=== PATIENT | male | born 1965 | race Hispanic/Latino ===

== ENCOUNTER 2016-12-08 21:00 | Emergency (ER) | payer SELFPAY ==
[2016-12-08 22:04] VITALS: BP 187/116
--- NOTE | 2016-12-11 21:57 | ED Elopement Review ---
ED Pt Elopement review - Call Back decision Pt Call Back Decision: Pt to F/U with PMD
== END 2016-12-08 23:46 | disposition left against medical advice (07) ==
LOC: ED 21:00
DX: R03.0 Elevated blood-pressure reading, without diagnosis of hypertension (principal); Z53.21 Procedure and treatment not carried out due to patient leaving prior to being seen by health care provider
CPT/HCPCS: 93005; 93010

== ENCOUNTER 2017-12-05 23:04 | Inpatient (IN) | payer OTHER ==
[2017-12-05] MEDS ORDERED: NACL 0.9% 1000 ML 1,000 ML ONE (23:05)
--- NOTE | 2017-12-05 23:15 | Emergency Department Report ---
HPI - General Time Seen by Provider: 12/05/17 23:11 - HPI HPI: Room 1 The patient is a 51-year-old male presenting with a chief complaint of chest pain and palpitations. The patient states this evening he was lying down at rest when at approximately 18:30 he notes an elevated heart rate. Patient states his heart start pounding and developed substernal chest pressure associated with shortness of breath and diaphoresis. Patient denies nausea and vomiting. The patient states she's had similar episodes in the past which she is attributed to panic attack although he's never been diagnosed with anxiety. Patient states she's never been evaluated for the elevations in the past. The patient states in the past as palpitations usually resolve but this time it did not prompting him to call EMS. Patient currently gets his chest soreness or score of 3-4/10. EMS was unable to establish IV access so no medication was given prior to arrival. Location: Chest Duration: Constant since 18:30 Quality: Pressure, palpitations Severity:3-4/10 Modifying factors: [see above] Context: [see above] Mode of transportation: [not driving] ED Past Medical Hx - Past Medical History Hx Hypertension: Yes Hx Diabetes: Yes Additional medical history: Hepatitis C - Surgical History Hx Appendectomy: Yes - Family History Family history: no significant - Social History Smoking Status: Never Smoker Substance Use Type: None (denies illicit drug use) - Medications Home Medications: Home Medications Medication Instructions Recorded Confirmed Last Taken Type Hydrochlorothiazide [HCTZ] 12.5 mg PO QDAY #30 tablet 01/09/15 Unknown Rx Lisinopril [Zestril TAB] 40 mg PO QDAY #30 tablet 01/09/15 Unknown Rx amLODIPine [Norvasc] 10 mg PO DAILY #30 tablet 01/09/15 Unknown Rx cloNIDine [Catapres] 0.1 mg PO BID #60 tablet 01/09/15 Unknown Rx metFORMIN [Glucophage] 500 mg PO QDAY #30 tablet 01/09/15 Unknown Rx Lisinopril/Hydrochlorothiazide 1 each PO QDAY #30 tablet 07/01/15 Unknown Rx [Zestoretic 20-12.5 mg] amLODIPine [Norvasc] 5 mg PO DAILY #30 tab 07/01/15 Unknown Rx cloNIDine [Catapres] 0.1 mg PO BID #60 tablet 07/01/15 Unknown Rx metFORMIN [Glucophage] 500 mg PO QDAY #30 tab 07/01/15 Unknown Rx ED Review of Systems ROS: Stated complaint: SVT Other details as noted in HPI Constitutional: diaphoresis Eyes: denies: eye pain ENT: denies: throat pain Respiratory: shortness of breath Cardiovascular: chest pain, palpitations Gastrointestinal: denies: abdominal pain, nausea, vomiting Genitourinary: denies: dysuria Musculoskeletal: denies: back pain Neurological: denies: headache Physical Exam - Physical Exam Physical Exam: GENERAL: The patient is well-developed well-nourished male lying on stretcher appearing to be in mild discomfort HEENT: Normocephalic. Atraumatic. Extraocular motions are intact. Patient has moist mucous membranes. NECK: Supple. Trachea midline CHEST/LUNGS: Clear to auscultation. There is no respiratory distress noted. HEART/CARDIOVASCULAR: Regular. There is tachycardia. There is no gallop rub or murmur. ABDOMEN: Abdomen is soft, nontender. Patient has normal bowel sounds. There is no abdominal distention. SKIN: There is no rash. There is no diaphoresis. NEURO: The patient is awake, alert, and oriented. The patient is cooperative. The patient has normal speech MUSCULOSKELETAL: There is no evidence of acute injury. ED Course - Reevaluation(s) Reevaluation #1: 12/05/17 23:28 Patient improved after adenosine. Heart rate 130s ED Medical Decision Making - Lab Data Result diagrams: 12/05/17 23:22 12/05/17 23:22 Laboratory Tests 12/05/17 12/05/17 12/05/17 23:22 23:22 23:22 WBC 18.5 H RBC 5.61 H Hgb 14.9 Hct 45.7 H MCV 82 L MCH 27 L MCHC 33 RDW 14.5 Plt Count 324 Lymph % (Auto) 24.1 [place] % (Auto) 10.0 H Eos % (Auto) 0.2 Baso % (Auto) 1.2 Lymph # 4.5 [place] # 1.9 H Eos # 0.0 Baso # 0.2 H Seg Neutrophils % 64.5 Seg Neutrophils # 11.9 H PT 12.2 INR 0.87 APTT 27.0 Sodium 125 L Potassium 3.3 L Chloride 87.5 L Carbon Dioxide 23 Anion Gap 18 BUN 23 H Creatinine 0.9 Estimated GFR > 60 BUN/Creatinine Ratio 26 Glucose 442 H Calcium 9.4 Total Creatine Kinase 111 CK-MB (CK-2) 2.1 CK-MB (CK-2) Rel Index 1.8 Troponin T 0.011 TSH Free T4 12/05/17 23:22 WBC RBC Hgb Hct MCV MCH MCHC RDW Plt Count Lymph % (Auto) [place] % (Auto) Eos % (Auto) Baso % (Auto) Lymph # [place] # Eos # Baso # Seg Neutrophils % Seg Neutrophils # PT INR APTT Sodium Potassium Chloride Carbon Dioxide Anion Gap BUN Creatinine Estimated GFR BUN/Creatinine Ratio Glucose Calcium Total Creatine Kinase CK-MB (CK-2) CK-MB (CK-2) Rel Index Troponin T TSH 5.110 H Free T4 1.48 H - EKG Data -: EKG Interpreted by Me Rate: tachycardia - EKG Data Interpretation: other (EKG #2 (status post adenosine) sinus tachycardia at 126 bpm. No significant change when compared to previous EKG dated 12/08/2016) - Radiology Data Radiology results: image reviewed (chest x-ray) interpreted by me: Chest x-ray-no focal infiltrate, no pneumothorax - Differential Diagnosis PSVT, a flutter, A. fib with RVR Critical care attestation.: If time is entered above; I have spent that time in minutes in the direct care of this critically ill patient, excluding procedure time. ED Disposition Clinical Impression: Chest pain, PSVT (paroxysmal supraventricular tachycardia), Hypokalemia, Hyponatremia, Hypothyroidism Disposition: OP ADMIT IP TO THIS HOSP Is pt being admited?: Yes Does the pt Need Aspirin: Yes Condition: Fair Instructions: Chest Pain (ED) Time of Disposition: 00:25 (hospitalist paged (Dr. Debbie Aiken))
[2017-12-05] MEDS ORDERED: NACL 0.9% 1000 ML 1,000 ML IV ONE (23:31)
[2017-12-05] MEDS ORDERED: ASPIRIN PO ONE (23:33)
[2017-12-05 23:54] LABS: Basophils # (Auto) 0.2 K/mm3 (0.0-0.1); Basophils % (Auto) 1.2 % (0.0-1.8); Eosinophils % (Auto) 0.2 % (0.0-4.3); Hematocrit 45.7 % (35.5-45.6); Hemoglobin 14.9 gm/dl (11.8-15.2); Lymphocytes # (Auto) 4.5 K/mm3 (1.2-5.4); Lymphocytes % (Auto) 24.1 % (13.4-35.0); Mean Corpuscular HGB Conc 33 % (32-34); Mean Corpuscular Hemoglobin 27 pg (28-32); Mean Corpuscular Volume 82 fl (84-94); Monocytes # (Auto) 1.9 K/mm3 (0.0-0.8); Platelet Count 324 K/mm3 (140-440); Red Blood Count 5.61 M/mm3 (3.65-5.03); Red Cell Distribution Width 14.5 % (13.2-15.2)
[2017-12-06 00:16] LABS: Creatine Kinase MB 2.1 ng/mL (0.0-4.0)
[2017-12-06 00:19] LABS: BUN/Creatinine Ratio 26; Blood Urea Nitrogen 23 mg/dL (9-20); Calcium 9.4 mg/dL (8.4-10.2); Hemolysis Index 18
[2017-12-06 00:22] LABS: INR 0.87 (0.87-1.13)
[2017-12-06] MEDS ORDERED: NACL 0.9% 1000 ML 1,000 ML IV ONE (00:24)
[2017-12-06] MEDS ORDERED: K-DUR PO ONE (00:25)
--- NOTE | 2017-12-06 00:26 | XRay Report ---
FINAL REPORT EXAM: XR CHEST 1V AP HISTORY: chest pain COMPARISON: None available. FINDINGS: Frontal view(s) of the chest obtained. Heart upper limits normal in size.. Shallow inspiration with crowding of bronchovascular markings. No gross consolidation or effusion. No pneumothorax. IMPRESSION: No grossly acute findings.
[2017-12-06 00:28] LABS: Free T4 (Free Thyroxine) 1.48 ng/dL (0.76-1.46)
[2017-12-06] MEDS ORDERED: SODIUM CHLORIDE FLUSH SYRINGE 10 ML IV PRN (01:16)
[2017-12-06] MEDS ORDERED: ZOFRAN IV PRN (01:16)
[2017-12-06] MEDS ORDERED: TYLENOL PO PRN (01:16)
--- NOTE | 2017-12-06 01:20 | History and Physical Report ---
History of Present Illness Date of examination: 12/06/17 History of present illness: 51 year old man with history of hypetension, diabetes, comes to the ER for evaluation of palpitation. He states the cough is productive of yellow phlegm that started 3 days ago. He felt fatigued. He took 2 [place] cold tablets and 1 sinus pill. Shortly afterwards he did not fill well, his heart started racing, he felt as if he was having a panic attack. EMS was called and his heart rate was over 200, he was brought to the emergency room and was given IV adenosine with good results Review of systems Constitutional: no weight loss, chills, fever Ears, eyes, nose, mouth and throat: no nasal congestion, no nasal discharge, no sinus pressure, no vision change, no red eye. Neck: No neck pain or rigidity. Cardiovascular: no chest pain Respiratory: no cough, shortness of breath Gastrointestinal: no abdominal pain hematochezia Genitourinary : no frequency , no hematuria Musculoskeletal: no joint swelling or muscle ache Integumentary: no rash, no pruritis Neurological: no parathesias, no numbness, no focal weakness Endocrine: no cold or heat intolerance, no polyuria or polydipsia Hematologic/Lymphatic: no easy bruising, no easy bleeding, no gland swelling Allergic/Immunologic: no urticaria, no angioedema. PAST MEDICAL HISTORY: Attention, diabetes PAST SURGICAL HISTORY: Tonsillectomy, appendectomy SOCIAL HISTORY: No alcohol, no drugs, tobacco FAMILY HISTORY: Hypertension Medications and Allergies Allergies Allergy/AdvReac Type Severity Reaction Status Date / Time codeine AdvReac Itching Verified 12/13/13 17:22 Home Medications Medication Instructions Recorded Confirmed Last Taken Type Metoprolol [Lopressor TAB] 50 mg PO BID #60 tablet 12/06/17 Unknown Rx Hydrochlorothiazide [Hctz] 12.5 mg PO QDAY #90 capsule 12/07/17 Unknown Rx Insulin NPH/Regular [NovoLIN 70/30] 10 unit SQ BIDDIAB #1 vial 12/07/17 Unknown Rx Lisinopril [Zestril] 20 mg PO DAILY #90 tablet 12/07/17 Unknown Rx Magnesium Chloride [Slow-Mag] 64 mg PO DAILY #7 tablet.er 12/07/17 Unknown Rx Pseudoephedrine ER [Sudafed 12 Hr] 120 mg PO Q12HR PRN #14 tablet 12/07/17 Unknown Rx Syrge-Ndl,Ins 0.3 ml Half Nixon 1 each MC BID #180 disp.syrin 12/07/17 Unknown Rx [Insulin Syringe] amLODIPine [Norvasc] 10 mg PO DAILY #90 tablet 12/07/17 Unknown Rx cloNIDine [Catapres] 0.1 mg PO BID #180 tablet 12/07/17 Unknown Rx glyBURIDE [Glyburide] 5 mg PO BIDAC #180 tablet 12/07/17 Unknown Rx guaiFENesin DM [Guaifenesin Dm 20 ml PO Q4H PRN #120 ml 12/07/17 Unknown Rx Syrup] metFORMIN [Glucophage] 1,000 mg PO BID #360 tablet 12/07/17 Unknown Rx Active Meds: Active Medications Sodium Chloride (Nacl 0.9% 1000 Ml) 1,000 mls @ 250 mls/hr IV ONCE ONE Stop: 12/06/17 04:23 Exam - Physical Exam Narrative exam: Gen. appearance: Patient lying in bed, no apparent distress HEENT: Normocephalic, atraumatic, pupils equally round and reactive to light, eyes are , extraocular movement intact, and no sclericterus,. No JVD or thyromegaly or nodule,neck supple, no carotid bruit ,mucous membranes moist, no exudate or erythema Heart: S1, S2, regular rate and rhythm Lungs: Clear bilaterally, breathing comfortable Abdomen: Positive bowel sounds, tender in mid abdomen, nondistended, no organomegaly Extremity:no edema cyanosis, clubbing Skin: no rash, dry, warm Neuro: Oriented 3, cranial nerves II-12 intact, speech is fluent, motor and sensory intact - Constitutional Vitals: Temp Pulse Resp BP Pulse Ox 110 H 14 126/88 96 12/06/17 00:38 12/06/17 00:30 12/06/17 00:30 12/06/17 00:30 Results - Labs CBC & Chem 7: 12/07/17 05:44 12/07/17 05:44 Labs: Abnormal lab results 12/05/17 12/05/17 12/05/17 Range/Units 23:22 23:22 23:22 WBC 18.5 H (4.5-11.0) K/mm3 RBC 5.61 H (3.65-5.03) M/mm3 Hct 45.7 H (35.5-45.6) % MCV 82 L (84-94) fl MCH 27 L (28-32) pg [place] % (Auto) 10.0 H (0.0-7.3) % [place] # 1.9 H (0.0-0.8) K/mm3 Baso # 0.2 H (0.0-0.1) K/mm3 Seg Neutrophils # 11.9 H (1.8-7.7) K/mm3 Sodium 125 L (137-145) mmol/L Potassium 3.3 L (3.6-5.0) mmol/L Chloride 87.5 L (98-107) mmol/L BUN 23 H (9-20) mg/dL Glucose 442 H (75-100) mg/dL TSH 5.110 H (0.270-4.200) mlU/mL Free T4 1.48 H (0.76-1.46) ng/dL - Imaging and Cardiology EKG: image reviewed Chest x-ray: image reviewed Assessment and Plan Assessment Palpitation most likely medication induced Hypertension Diabetes Plan Admit to medicine Start IV fluids, check 6 initiate insulin sliding [facility] [place], cardiology DVT prophylaxis echo
[2017-12-06] MEDS ORDERED: NACL 0.45% 1000 ML 1,000 ML IV SCH (02:00)
[2017-12-06 02:34] LABS: Creatine Kinase MB 2.9 ng/mL (0.0-4.0)
[2017-12-06 02:49] LABS: Chol/HDL Ratio 4.37 %
[2017-12-06] MEDS ORDERED: LEVAQUIN 500MG/100ML 500 MG/100 ML BAG IV ONE (04:15)
[2017-12-06] MEDS: LEVAQUIN 500MG/100ML 500 MG/100 ML BAG IV SCH ×2 (04:27→10:25)
[2017-12-06] MEDS ORDERED: LOVENOX SUB-Q ONE (10:35)
[2017-12-06] MEDS: LOVENOX SUB-Q SCH (11:06)
[2017-12-06] MEDS: SODIUM CHLORIDE FLUSH SYRINGE 10 ML IV SCH ×2 (11:07→21:54)
[2017-12-06 11:26] LABS: Creatine Kinase MB 3.9 ng/mL (0.0-4.0)
--- NOTE | 2017-12-06 14:06 | Consultation ---
History of Present Illness Consult date: 12/06/17 Consult reason: arrhythmia History of present illness: This is a 51yr old male who presents with palpitations, found to be in SVT which was treated with adenosine. He has since reverted to a sinus rhythm. Laboratory studies shows a WBC of 18.5, a sodium of 125 and TSH of 5.10. A repeat ECG shows a sinus tachycardia, no acute ST changes. A cardiac consultation was requested for further management. Past History Past Medical History: diabetes, hypertension Medications and Allergies Allergies Allergy/AdvReac Type Severity Reaction Status Date / Time codeine AdvReac Itching Verified 12/13/13 17:22 Home Medications Medication Instructions Recorded Confirmed Last Taken Type amLODIPine [Norvasc] 10 mg PO DAILY #30 tablet 01/09/15 12/06/17 Unknown Rx Lisinopril/Hydrochlorothiazide 1 each PO QDAY #30 tablet 07/01/15 12/06/17 Unknown Rx [Zestoretic 20-12.5 mg] cloNIDine [Catapres] 0.1 mg PO BID #60 tablet 07/01/15 12/06/17 Unknown Rx glyBURIDE [Glyburide] 1 tab PO DAILY 12/06/17 12/06/17 Unknown History metFORMIN [Glucophage] 1,000 mg PO QDAY 12/06/17 12/06/17 Unknown History Active Meds: Active Medications Acetaminophen (Tylenol) 650 mg PO Q4H PRN PRN Reason: Pain MILD(1-3)/Fever >100.5/ARGUETA Enoxaparin Sodium (Lovenox) 40 mg SUB-Q QDAY [facility] Last Admin: 12/06/17 11:06 Dose: 40 mg Sodium Chloride (Nacl 0.45% 1000 Ml) 1,000 mls @ 75 mls/hr IV DIRECT [facility] Last Admin: 12/06/17 12:11 Dose: 75 mls/hr Levofloxacin/Dextrose (Levaquin 500mg/100ml) 500 mg in 100 mls @ 100 mls/hr IV Q24HR [facility]; Protocol Last Admin: 12/06/17 10:25 Dose: Not Given Ondansetron HCl (Zofran) 4 mg IV Q8H PRN PRN Reason: Nausea And Vomiting Sodium Chloride (Sodium Chloride Flush Syringe 10 Ml) 10 ml IV BID [facility] Last Admin: 12/06/17 11:07 Dose: 10 ml Sodium Chloride (Sodium Chloride Flush Syringe 10 Ml) 10 ml IV PRN PRN PRN Reason: LINE FLUSH Physical Examination Vital Signs Pulse Resp 207 H 16 12/05/17 23:02 12/05/17 23:02 General appearance: no acute distress HEENT: Positive: PERRL Cardiac: Positive: Reg Rate and Rhythm Results 12/05/17 23:22 12/05/17 23:22 Cardiac Enzymes 12/05/17 12/06/17 12/06/17 Range/Units 23:22 01:37 10:08 CK-MB (CK-2) 2.1 2.9 3.9 (0.0-4.0) ng/mL Coagulation 12/05/17 Range/Units 23:22 PT 12.2 (12.2-14.9) Sec. INR 0.87 (0.87-1.13) APTT 27.0 (24.2-36.6) Sec. Lipids 12/06/17 Range/Units 01:37 Triglycerides 84 (2-149) mg/dL Cholesterol 162 (50-199) mg/dL HDL Cholesterol 37 L (40-59) mg/dL Cholesterol/HDL Ratio 4.37 % CBC 12/05/17 Range/Units 23:22 WBC 18.5 H (4.5-11.0) K/mm3 RBC 5.61 H (3.65-5.03) M/mm3 Hgb 14.9 (11.8-15.2) gm/dl Hct 45.7 H (35.5-45.6) % Plt Count 324 (140-440) K/mm3 Lymph # 4.5 (1.2-5.4) K/mm3 [place] # 1.9 H (0.0-0.8) K/mm3 Eos # 0.0 (0.0-0.4) K/mm3 Baso # 0.2 H (0.0-0.1) K/mm3 Comprehensive Metabolic Panel 12/05/17 Range/Units 23:22 Sodium 125 L (137-145) mmol/L Potassium 3.3 L (3.6-5.0) mmol/L Chloride 87.5 L (98-107) mmol/L Carbon Dioxide 23 (22-30) mmol/L BUN 23 H (9-20) mg/dL Creatinine 0.9 (0.8-1.5) mg/dL Glucose 442 H (75-100) mg/dL Calcium 9.4 (8.4-10.2) mg/dL Assessment and Plan AVRNT s/p adenosine x 1 reverted to sinus rhythm Hypertension Diabetes
--- NOTE | 2017-12-06 15:31 | Discharge Summary ---
Providers - Providers Date of Admission: 12/06/17 01:16 Attending physician: JENNIFER AMAYA MD 12/06/17 01:16 Consult to Physician [CONS] Routine Comment: Consulting Provider: FRANDY BAUTISTA Physician Instructions: Reason For Exam: svt Primary care physician: [employer] Hospitalization Condition: Fair Hospital course: 51 year old man with history of hypetension, diabetes, comes to the ER for evaluation of palpitation. He states the cough is productive of yellow phlegm. He felt fatigued. He took 2 [place] cold tablets and 1 sinus pill. Shortly afterwards he did not feel well, his heart started racing, he felt as if he was having a panic attack. EMS was called and his heart rate was over 200 , he was brought to the emergency room and was given IV adenosine with good results. He was admitted to the hospital, he was seen by cardiology who recommended metoprolol for rate control. He was advised to be careful with cold medications and not take half the recommended dose. His sugars were elevated, his A1c was 10. He was started on insulins. He was also found to be hyponatremic. He was received IV fluid and electrolytes were repleted Diagnoses SVT Hypertension Uncontrolled diabetes Hyponatremia Dehydration Hypokalemia Hypomagnesemia Disposition: DC-01 TO HOME OR SELFCARE Time spent for discharge: 33 minutes Core Measure Documentation - Palliative Care Palliative Care/ Comfort Measures: Not Applicable - Core Measures Any of the following diagnoses?: none Exam - Constitutional Vitals: Temp Pulse Resp BP Pulse Ox 98.4 F 93 H 20 138/101 93 12/06/17 11:50 12/06/17 11:50 12/06/17 11:50 12/06/17 11:50 12/06/17 11:50 General appearance: Present: no acute distress, well-nourished - EENT Eyes: Present: PERRL ENT: hearing intact, clear oral mucosa - Neck Neck: Present: supple, normal ROM - Respiratory Respiratory effort: normal Respiratory: bilateral: CTA - Cardiovascular Heart Sounds: Present: S1 & S2. Absent: rub, click - Extremities Extremities: pulses symmetrical, No edema Peripheral Pulses: within normal limits - Abdominal General gastrointestinal: Present: soft, non-tender, non-distended, normal bowel sounds Male genitourinary: Present: normal - Integumentary Integumentary: Present: clear, warm, dry - Musculoskeletal Musculoskeletal: gait normal, strength equal bilaterally - Psychiatric Psychiatric: appropriate mood/affect, intact judgment & insight - Neurologic Neurologic: CNII-XII intact, moves all extremities Plan Follow up with: PRIMARY CARE,MD [Primary Care Provider] - 3-5 Days Prescriptions: amLODIPine [Norvasc] 10 mg PO DAILY #90 tablet cloNIDine [Catapres] 0.1 mg PO BID #180 tablet glyBURIDE [Glyburide] 5 mg PO BIDAC #180 tablet guaiFENesin DM [Guaifenesin Dm Syrup] 20 ml PO Q4H PRN #120 ml PRN Reason: Cough Hydrochlorothiazide [Hctz] 12.5 mg PO QDAY #90 capsule Insulin NPH/Regular [NovoLIN 70/30] 10 unit SQ BIDDIAB #1 vial Lisinopril [Zestril] 20 mg PO DAILY #90 tablet Magnesium Chloride [Slow-Mag] 64 mg PO DAILY #7 tablet.er metFORMIN [Glucophage] 1,000 mg PO BID #360 tablet Metoprolol [Lopressor TAB] 50 mg PO BID #60 tablet Pseudoephedrine ER [Sudafed 12 Hr] 120 mg PO Q12HR PRN #14 tablet PRN Reason: Allergy Symptoms Syrge-Ndl,Ins 0.3 ml Half [place] [Insulin Syringe] 1 each MC BID #180 disp.syrin Other Discharge Orders: Glucometer supplies[Amb] Location: None Selected Glucometer (Amb) Location: None Selected
[2017-12-06] MEDS: LOPRESSOR PO SCH ×2 (15:34→21:52)
[2017-12-06] MEDS: HumaLOG SUB-Q SCH ×2 (15:38→22:55)
[2017-12-06] MEDS ORDERED: APRESOLINE IV PRN (15:44)
[2017-12-06] MEDS ORDERED: NS/KCL 20MEQ 20 MEQ/1,000 ML BAG IV SCH (16:00)
--- NOTE | 2017-12-06 20:05 | Progress Note ---
Assessment and Plan Assessment and plan: 51 year old man with history of hypetension, diabetes, comes to the ER c/o cough, cold stuffy nose. He took 2 [place] cold tablets and 1 sinus pill. Shortly afterwards he did not feel well, his heart started racing, he felt as if he was having a panic attack. EMS was called and his heart rate was over 200 , he was brought to the emergency room and was given IV adenosine with good results SVT; Palpitation most likely medication induced from taking anticongestants, per cardiology, "The patient should be administered with beta paul therapy, metoprolol 50 mg BID., Further cardiac workup as outpatient with electrophysiologic follow-up" Hyponatremia; NS Hypokalemia; replete Hypertension- optimize meds Diabetes, very hyperglycemic- check a1c, ssi History Interval history: Review of systems Constitutional: No fevers, no malaise, no joint pains CVS: No chest pain, no orthopnea, no dyspnea on exertion, no pedal edema GI: No abdominal pain, no diarrhea, no vomiting, no constipation Respiratory: No shortness of breath, no wheezing, no coughing Hospitalist Physical - Physical exam Narrative exam: General.: Appears well, no distress, nontoxic HEENT: Moist mucous membranes, extraocular muscles intact, no lymphadenopathy Neck: supple Cardiac: S1-S2 heard Lungs: clear to auscultation bilaterally Abdomen: soft , nontender, nondistended, bowel sounds positive Extremities: no edema clubbing or cyanosis Skin: no rash or lesions Neurologic: no gross focal deficits Psych: appropriate behavior, appropriate mood, corporative, judgment intact - Constitutional Vitals: Temp Pulse Resp BP Pulse Ox 98.4 F 83 20 137/90 93 12/06/17 16:48 12/06/17 16:48 12/06/17 16:48 12/06/17 16:48 12/06/17 16:48 General appearance: Present: no acute distress, well-nourished Results - Labs CBC & Chem 7: 12/07/17 05:44 12/07/17 05:44 Labs: Laboratory Last Values WBC 18.5 K/mm3 (4.5-11.0) H 12/05/17 23:22 RBC 5.61 M/mm3 (3.65-5.03) H 12/05/17 23:22 Hgb 14.9 gm/dl (11.8-15.2) 12/05/17 23:22 Hct 45.7 % (35.5-45.6) H 12/05/17 23:22 MCV 82 fl (84-94) L 12/05/17 23:22 MCH 27 pg (28-32) L 12/05/17 23:22 MCHC 33 % (32-34) 12/05/17 23:22 RDW 14.5 % (13.2-15.2) 12/05/17 23:22 Plt Count 324 K/mm3 (140-440) 12/05/17 23:22 Lymph % (Auto) 24.1 % (13.4-35.0) 12/05/17 23:22 [place] % (Auto) 10.0 % (0.0-7.3) H 12/05/17 23:22 Eos % (Auto) 0.2 % (0.0-4.3) 12/05/17 23:22 Baso % (Auto) 1.2 % (0.0-1.8) 12/05/17 23:22 Lymph # 4.5 K/mm3 (1.2-5.4) 12/05/17 23:22 [place] # 1.9 K/mm3 (0.0-0.8) H 12/05/17 23:22 Eos # 0.0 K/mm3 (0.0-0.4) 12/05/17 23:22 Baso # 0.2 K/mm3 (0.0-0.1) H 12/05/17 23:22 Seg Neutrophils % 64.5 % (40.0-70.0) 12/05/17 23:22 Seg Neutrophils # 11.9 K/mm3 (1.8-7.7) H 12/05/17 23:22 PT 12.2 Sec. (12.2-14.9) 12/05/17 23:22 INR 0.87 (0.87-1.13) 12/05/17 23:22 APTT 27.0 Sec. (24.2-36.6) 12/05/17 23:22 Sodium 125 mmol/L (137-145) L 12/05/17 23:22 Potassium 3.3 mmol/L (3.6-5.0) L 12/05/17 23:22 Chloride 87.5 mmol/L (98-107) L 12/05/17 23:22 Carbon Dioxide 23 mmol/L (22-30) 12/05/17 23:22 Anion Gap 18 mmol/L 12/05/17 23:22 BUN 23 mg/dL (9-20) H 12/05/17 23:22 Creatinine 0.9 mg/dL (0.8-1.5) 12/05/17 23:22 Estimated GFR > 60 ml/min 12/05/17 23:22 BUN/Creatinine Ratio 26 % 12/05/17 23:22 Glucose 442 mg/dL (75-100) H 12/05/17 23:22 POC Glucose 280 (70-105) H 12/06/17 16:43 Hemoglobin A1c 10.8 % (4-6) H 12/06/17 18:28 Calcium 9.4 mg/dL (8.4-10.2) 12/05/17 23:22 Magnesium 1.60 mg/dL (1.7-2.3) L 12/06/17 18:28 Total Creatine Kinase 109 units/L (55-170) 12/06/17 10:08 CK-MB (CK-2) 3.9 ng/mL (0.0-4.0) 12/06/17 10:08 CK-MB (CK-2) Rel Index 3.5 (0-4) 12/06/17 10:08 Troponin T 0.027 ng/mL (0.00-0.029) 12/06/17 10:08 Triglycerides 84 mg/dL (2-149) 12/06/17 01:37 Cholesterol 162 mg/dL (50-199) 12/06/17 01:37 LDL Cholesterol Direct 122 mg/dL (50-130) 12/06/17 01:37 HDL Cholesterol 37 mg/dL (40-59) L 12/06/17 01:37 Cholesterol/HDL Ratio 4.37 % 12/06/17 01:37 TSH 5.110 mlU/mL (0.270-4.200) H 12/05/17 23:22 Free T4 1.48 ng/dL (0.76-1.46) H 12/05/17 23:22
[2017-12-06] MEDS: SUDAFED 12 HR PO PRN (21:49)
[2017-12-06] MEDS: CATAPRES PO SCH (21:49)
[2017-12-06] MEDS: GUAIFENESIN DM SYRUP PO PRN (21:49)
[2017-12-07 07:46] LABS: Basophils # (Auto) 0.1 K/mm3 (0.0-0.1); Basophils % (Auto) 0.9 % (0.0-1.8); Eosinophils # (Auto) 0.1 K/mm3 (0.0-0.4); Eosinophils % (Auto) 1.3 % (0.0-4.3); Hemoglobin 14.2 gm/dl (11.8-15.2); Lymphocytes % (Auto) 33.6 % (13.4-35.0); Mean Corpuscular HGB Conc 33 % (32-34); Mean Corpuscular Hemoglobin 27 pg (28-32); Mean Corpuscular Volume 82 fl (84-94); Monocytes # (Auto) 0.8 K/mm3 (0.0-0.8); Monocytes % (Auto) 8.8 % (0.0-7.3); Platelet Count 273 K/mm3 (140-440); Red Blood Count 5.24 M/mm3 (3.65-5.03); Red Cell Distribution Width 14.4 % (13.2-15.2)
[2017-12-07] MEDS ORDERED: DIABETA PO SCH (08:00)
[2017-12-07 08:02] LABS: BUN/Creatinine Ratio 30; Blood Urea Nitrogen 12 mg/dL (9-20); Calcium 8.4 mg/dL (8.4-10.2); Hemolysis Index 15
[2017-12-07] MEDS: HumaLOG SUB-Q SCH ×2 (09:12→12:53)
[2017-12-07] MEDS: GUAIFENESIN DM SYRUP PO PRN (09:13)
[2017-12-07] MEDS: LOPRESSOR PO SCH (09:25)
[2017-12-07] MEDS: LOVENOX SUB-Q SCH (09:25)
[2017-12-07] MEDS: CATAPRES PO SCH (09:26)
[2017-12-07] MEDS: LEVAQUIN 500MG/100ML 500 MG/100 ML BAG IV SCH (09:29)
[2017-12-07] MEDS: SUDAFED 12 HR PO PRN (09:33)
[2017-12-07] MEDS: SODIUM CHLORIDE FLUSH SYRINGE 10 ML IV SCH (09:44)
[2017-12-07] MEDS ORDERED: GLUCOPHAGE PO SCH (10:00)
[2017-12-07] MEDS ORDERED: GLYBURIDE PO SCH (10:00)
[2017-12-07] MEDS ORDERED: ZESTRIL PO SCH (10:00)
[2017-12-07] MEDS ORDERED: NORVASC PO SCH (10:00)
--- NOTE | 2017-12-07 10:33 | Progress Note ---
Assessment and Plan - Patient Problems (1) PSVT (paroxysmal supraventricular tachycardia) Current Visit: Yes Status: Acute Plan to address problem: Metoprolol 50 mg by mouth twice a day for paroxysmal supraventricular tachycardia. Okay for cardiac discharge, with outpatient cardiac follow-up in 7 days. Subjective Date of service: 12/07/17 Interval history: Patient is comfortable, no further palpitations, remains in stable sinus rhythm. Objective Vital Signs Temp Pulse Resp Resp Resp BP Pulse Ox 12/07/17 09:32 80 145/101 12/07/17 09:27 80 145/101 12/07/17 09:26 80 145/101 12/07/17 09:25 80 145/101 12/07/17 08:31 96 12/07/17 05:22 97.8 F 80 18 145/101 94 12/07/17 00:08 98.6 F 83 20 139/97 94 12/06/17 22:00 18 18 12/06/17 21:52 94 H 168/110 12/06/17 21:49 94 H 168/110 12/06/17 21:37 96 12/06/17 20:32 98.9 F 94 H 20 168/110 95 12/06/17 20:10 83 12/06/17 16:48 98.4 F 83 20 137/90 93 12/06/17 15:34 143/99 12/06/17 11:50 98.4 F 93 H 20 138/101 93 12/06/17 10:50 94 H 12 135/89 96 12/06/17 10:41 94 H 16 135/89 92 - Physical Examination General: No Apparent Distress HEENT: Positive: PERRL Neck: Positive: neck supple Cardiac: Positive: Reg Rate and Rhythm Lungs: Positive: Decreased Breath Sounds Neuro: Positive: Grossly Intact Abdomen: Positive: Soft Skin: Positive: Clear Extremities: Absent: edema - Labs and Meds Cardiac Enzymes 12/06/17 Range/Units 10:08 CK-MB (CK-2) 3.9 (0.0-4.0) ng/mL CBC 12/07/17 Range/Units 05:44 WBC 9.0 (4.5-11.0) K/mm3 RBC 5.24 H (3.65-5.03) M/mm3 Hgb 14.2 (11.8-15.2) gm/dl Hct 43.0 (35.5-45.6) % Plt Count 273 (140-440) K/mm3 Lymph # 3.0 (1.2-5.4) K/mm3 [place] # 0.8 (0.0-0.8) K/mm3 Eos # 0.1 (0.0-0.4) K/mm3 Baso # 0.1 (0.0-0.1) K/mm3 Comprehensive Metabolic Panel 12/07/17 Range/Units 05:44 Sodium 138 D (137-145) mmol/L Potassium 3.5 L (3.6-5.0) mmol/L Chloride 98.6 (98-107) mmol/L Carbon Dioxide 23 (22-30) mmol/L BUN 12 (9-20) mg/dL Creatinine 0.4 L D (0.8-1.5) mg/dL Glucose 228 H (75-100) mg/dL Calcium 8.4 (8.4-10.2) mg/dL - Imaging and Cardiology EKG: image reviewed
[2017-12-07] MEDS ORDERED: MAGNESIUM SULFATE 2GM/50ML 2 GM/50 ML BAG IV ONE (11:31)
[2017-12-07] MEDS ORDERED: D5W IV ONE (12:00)
[2017-12-07] MEDS ORDERED: MAGNESIUM SULFATE IV ONE (12:00)
[2017-12-07 12:37] VITALS: BP 126/81
== END 2017-12-07 16:51 | disposition home or self-care (01) | DRG 309 ==
LOC: ED 23:04 → 4A 12-06 01:16 → 3A 12-06 20:32
PROVIDERS: ADMIT Internal Medicine; ATTEND Internal Medicine
DX: I47.1 Supraventricular tachycardia (principal); E87.1 Hypo-osmolality and hyponatremia; I10 Essential (primary) hypertension; E87.6 Hypokalemia; E11.65 Type 2 diabetes mellitus with hyperglycemia; E86.0 Dehydration; E03.9 Hypothyroidism, unspecified; Z82.49 Family history of ischemic heart disease and other diseases of the circulatory system; Z88.5 Allergy status to narcotic agent; Z90.49 Acquired absence of other specified parts of digestive tract
CPT/HCPCS: 36415; 71045; 80048; 80061; 82550; 82553; 82962; 83036; 83735; 84436; 84439; 84443; 84484; 85025; 85610; 85730; 93005; 93010; 93306; J0153; J1650; J1815; J1956; J3475; J7030

== ENCOUNTER 2021-01-03 17:37 | Emergency (ER) | payer MEDICAID ==
--- NOTE | 2021-01-03 18:27 | Event Note ---
ED Screening Note Date of service: 01/03/21 Time: 18:23 ED Screening Note: Patient presents to the ER today with complaints of "feeling like he is going to ". Patient states that he had a bad anxiety attack this morning. He called EMS out at the time of his anxiety attack and they checked him out. He states that they called to different hospitals and they were told that it was very busy. Patient states that he thought he would be with a handle at home but he states that he has continued to "feel bad". He states that he has been feeling generally weak, he has been feeling dizzy, short of breath, and he has been having dry mouth. He states that he feels like he is also about to pass out and he is having problems remembering. Patient states that he is not on any medications for his anxiety. He denies any illicit drug use or alcohol abuse. He does have a known history of hypertension, and he is on 3 different medications for his hypertension 1 of which he is out of since Tuesday. He did take his other 2 today. In triage patient appears anxious and is tearful intermittently stating that "I feel like I am going to ". He has no apparent focal deficits in triage. His blood pressure was elevated but his remaining vitals are stable. This initial assessment/diagnostic orders/clinical plan/treatment(s) is/are subject to change based on patients health status, clinical progression and re- assessment by fellow clinical providers in the ED. Further treatment and workup at subsequent clinical providers discretion. Patient/guardian urged not to elope from the ED as their condition may be serious if not clinically assessed and managed. Initial orders include: Labs with head CT
[2021-01-03 18:54] LABS: Basophils # (Auto) 0.1 K/mm3 (0.0-0.1); Eosinophils # (Auto) 0.1 K/mm3 (0.0-0.4); Hematocrit 43.2 % (35.5-45.6); Hemoglobin 14.8 gm/dl (11.8-15.2); Lymphocytes # (Auto) 3.3 K/mm3 (1.2-5.4); Lymphocytes % (Auto) 23.7 % (13.4-35.0); Mean Corpuscular HGB Conc 34 % (32-34); Mean Corpuscular Volume 82 fl (84-94); Monocytes # (Auto) 0.9 K/mm3 (0.0-0.8); Platelet Count 308 K/mm3 (140-440); Red Blood Count 5.28 M/mm3 (3.65-5.03); Red Cell Distribution Width 14.8 % (13.2-15.2)
--- NOTE | 2021-01-03 19:02 | XRay Report ---
CHEST PA AND LATERAL VIEWS INDICATION: SOB. COMPARISON: 12/05/2017. FINDINGS: Support devices: None. Heart: Within normal limits. Lungs/Pleura: No acute pulmonary or pleural findings. IMPRESSION: 1. No acute findings. Signer Name: Heriberto Peterson MD Signed: 01/03/2021 6:57 PM Workstation Name: [id number]
[2021-01-03 19:08] LABS: INR 0.93 (0.87-1.13)
[2021-01-03 19:09] LABS: Partial Thromboplastin Time 27.5 Sec. (24.2-36.6)
[2021-01-03 19:15] LABS: Alanine Aminotransferase 49 units/L (7-56); Albumin 3.9 g/dL (3.9-5); Blood Urea Nitrogen 18 mg/dL (9-20); Calcium 9.3 mg/dL (8.4-10.2); Hemolysis Index 11
[2021-01-03 19:24] LABS: BUN/Creatinine Ratio 26
[2021-01-03 19:48] VITALS: BP 183/112
[2021-01-03] MEDS ORDERED: cloNIDine 0.2 MG TAB PO ONE (19:54)
--- NOTE | 2021-01-03 20:14 | Cat Scan Report ---
CT HEAD WITHOUT CONTRAST INDICATION / CLINICAL INFORMATION: dizzy/near syncope. TECHNIQUE: All CT scans at this location are performed using CT dose reduction for ALARA by means of automated e xposure control. COMPARISON: MRI brain 07/17/2018 FINDINGS: HEMORRHAGE: No evidence of intracranial hemorrhage or extra-axial fluid collection. EXTRA-AXIAL SPACES: Cortical sulci, sylvian fissures and basilar cisterns have an unremarkable appear ance. VENTRICULAR SYSTEM: The third and lateral ventricles are of normal size and configuration. CEREBRAL PARENCHYMA: No areas of abnormal brain parenchymal attenuation are identified. There is no i ndication of recent infarction. MIDLINE SHIFT OR HERNIATION: There is no mass effect. CEREBELLUM / BRAINSTEM: Brainstem and cerebellum have an unremarkable appearance. MIDLINE STRUCTURES:No abnormalities of the pituitary gland or pineal region are identified. INTRACRANIAL VESSELS: Calcified atherosclerotic plaque is demonstrated along the cavernous segments o f both internal carotid arteries. ORBITS: visualized portions of the orbits have an unremarkable appearance. SOFT TISSUES of HEAD: No significant abnormality. CALVARIUM: Evaluation of bone windows reveals no abnormalities. PARANASAL SINUSES / MASTOID AIR CELLS: Visualized portions of the paranasal sinuses are free from inf lammatory mucosal disease. Mastoid air cells are normally pneumatized. IMPRESSION: 1. No significant intracranial abnormality. Signer Name: Haresh An MD Signed: 01/03/2021 8:09 PM Workstation Name: [id number]
--- NOTE | 2021-01-05 10:38 | Electrocardiograph Report ---
[facility] Test Date: 2021-01-03 Test Time: 18:25:41 Pat Name: CUATE MARTIN Department: Room: Gender: M Drop Clipper: JOAN : 1965 Requested By: DAVID MCNEAL Order Number: [id number] Reading MD: Diego Moura Measurements Intervals Gray Rate: 69 P: 7 ND: 168 QRS: -21 QRSD: 87 T: 51 QT: 423 QTc: 454 Interpretive Statements Sinus rhythm No previous ECG available for comparison Electronically Signed On 01-05-2021 10:38:07 EDT by Diego Moura
== END 2021-01-03 23:42 | disposition left against medical advice (07) ==
LOC: ED 17:37
DX: R53.83 Other fatigue (principal); Z53.21 Procedure and treatment not carried out due to patient leaving prior to being seen by health care provider
CPT/HCPCS: 36415; 70450; 71046; 80053; 84484; 85025; 85610; 85730; 93005